=== PATIENT | female | born 1960 | race Caucasian/White ===

== ENCOUNTER 2017-09-15 08:20 | Inpatient (IN) | payer OTHER ==
[~2017-09-15 08:20] MED LIST: ETOMIDATE 20 MG INJ; ROCURONIUM 50 MG INJ
[2017-09-15] MEDS: SOD CHLORIDE 0.9% 1,000 ML IV (08:33)
[2017-09-15] MEDS: ONDANSETRON 4 MG INJ IV (08:33)
[2017-09-15 08:53] LABS: ADD MAN DIFF? NO
[2017-09-15 08:55] LABS: BASOPHILS % 0.3 % (0.0-2.0); EOSINOPHILS # 0.1 10^3/ul (0.0-0.5); EOSINOPHILS % 0.4 % (0.0-7.0); HEMATOCRIT 35.7 % (37.0-47.0); HEMOGLOBIN 10.9 g/dl (12.0-16.0); LYMPHOCYTES # 0.9 10^3/ul (0.8-2.9); LYMPHOCYTES % 7.9 % (15.0-51.0); MEAN CORPUSCULAR HEMOGLOBIN 25.1 pg (29.0-33.0); MEAN CORPUSCULAR HGB CONC 30.5 g/dl (32.0-37.0); MEAN CORPUSCULAR VOLUME 82.1 fl (82.0-101.0); MEAN PLATELET VOLUME 8.1 fl (7.4-10.4); MONOCYTE # 0.8 10^3/ul (0.3-0.9); MONOCYTES % 6.9 % (0.0-11.0); NEUTROPHIL # 10.1 10^3/ul (1.6-7.5); PLATELET COUNT 427 10^3/UL (140-415); RED BLOOD COUNT 4.35 10^6/ul (4.20-5.40)
[2017-09-15 09:17] LABS: ALANINE AMINOTRANSFERASE 18 IU/L (13-69); ALBUMIN 3.6 g/dl (3.3-4.9); ALBUMIN/GLOBULIN RATIO 1.02; ALKALINE PHOSPHATASE 138 IU/L (42-121); ANION GAP 19 (8-16); ASPARTATE AMINO TRANSFERASE 32 IU/L (15-46); BILIRUBIN,INDIRECT 0.2 mg/dl (0-1.1); BILIRUBIN,TOTAL 0.2 mg/dl (0.2-1.3); BLOOD UREA NITROGEN 20 mg/dl (7-20); CARBON DIOXIDE 29 mmol/L (21-31); CHLORIDE 91 mmol/L (97-110); CREATININE 0.83 mg/dl (0.44-1.00); POTASSIUM 4.4 mmol/L (3.5-5.1); SODIUM 135 mmol/L (135-144); TOTAL PROTEIN 7.1 g/dl (6.1-8.1)
[2017-09-15 09:22] LABS: ACETAMINOPHEN < 10.0 ug/ml (10.0-30.0); ETHANOL < 10.0 mg/dl; SALICYLATE < 1.0 mg/dl (5.0-30.0)
[2017-09-15 09:26] LABS: GLUCOSE 417 mg/dl (70-220)
[2017-09-15 09:28] LABS: TROPONIN-I 0.014 ng/ml (0.00-0.12)
[2017-09-15] MEDS ORDERED: hydrALAzine 20 MG INJ (09:29)
[2017-09-15] MEDS ORDERED: PHYTONADIONE 10 MG/ML INJ (09:37)
[2017-09-15] MEDS: hydrALAzine 20 MG INJ IV (09:40)
[2017-09-15 09:58] LABS: FREE THYROXINE INDEX (Calc) 3.14 ug/ml (0.65-3.89); INR 0.93; PROTIME 12.5 Sec (11.9-14.9); T3 UPTAKE 41.8 % (23.5-40.5); T4 (THYROXINE) 7.5 ug/dl (5.5-11.0)
[2017-09-15 09:59] LABS: PARTIAL THROMBOPLASTIN TIME 38.3 Sec (25.0-35.0)
[2017-09-15] MEDS: HYDROmorphONE 0.5 MG/0.5 ML SYG IV (09:59)
[2017-09-15] MEDS: HUMAN PROTHROMBIN COMPLX(PCC) 1,500 UNITS in EVAC CONTAINER 1 BOTTLE IV (10:00)
[2017-09-15] MEDS: PHYTONADIONE 10 MG in DEXTROSE 5% 50 ML IVPB (10:00)
[2017-09-15] MEDS: IDARUCIZUMAB IV ×2 (10:00→10:15)
[2017-09-15] MEDS: niCARdipine-NS 0.1MG/ML DRIP 200 ML IV (10:00)
[2017-09-15] MEDS: MANNITOL 20% 500 ML IV (10:15)
[2017-09-15] MEDS: SOD CHLORIDE 0.9% 1,860 ML IV (10:16)
[2017-09-15] MEDS ORDERED: DEXTROSE 50% 50 ML SYRINGE IV ×4 (10:30→16:30)
[2017-09-15] MEDS ORDERED: NACL 0.9% 3 ML SYG IV (10:30)
[2017-09-15] MEDS ORDERED: ACETAMINOPHEN 325 MG TAB PO (10:30)
[2017-09-15] MEDS ORDERED: morphine 2 MG INJ IV (10:30)
[2017-09-15] MEDS ORDERED: ONDANSETRON 4 MG INJ IV ×2 (10:30→14:30)
[2017-09-15] MEDS ORDERED: BISACODYL 10 MG SUPP PR (10:30)
[2017-09-15] MEDS ORDERED: GLUCAGON 1 MG INJ IM (10:30)
[2017-09-15] MEDS ORDERED: GLUCOSE GEL 15 GRAM TUBE BUCCAL (10:30)
[2017-09-15] MEDS ORDERED: DOCUSATE SODIUM 100 MG CAP PO (10:30)
[2017-09-15] MEDS ORDERED: MAGNESIUM HYDROXIDE 30ML CUP PO (10:30)
[2017-09-15] MEDS ORDERED: GLUCOSE GEL 15 GRAM TUBE PO ×2 (10:30)
[2017-09-15] MEDS ORDERED: ACETAMINOPHEN 650 MG SUPP PR (10:30)
[2017-09-15] MEDS: CEFAZOLIN 2 GM/50 ML (PMX) 50 ML IVPB (11:15)
[2017-09-15 11:30] LABS: ADD UMIC YES; COLLAGEN/EPI 178 Secs. (51-198); UR ASCORBIC ACID 40 mg/dL (NEGATIVE); UR BACTERIA MODERATE /HPF (NONE SEEN); UR BILIRUBIN (Dip) NEGATIVE (NEGATIVE); UR BLOOD (Dip) 2+ mg/dL (NEGATIVE); UR CLARITY SLIGHTLY CLOUDY (CLEAR); UR COLOR YELLOW (YELLOW); UR GLUCOSE (Dip) 3+ mg/dL (NEGATIVE); UR KETONES (Dip) 1+ mg/dL (NEGATIVE); UR LEUKOCYTE ESTERASE (Dip) 2+ Leu/ul (NEGATIVE); UR NITRITE (Dip) POSITIVE (NEGATIVE); UR RBC 6 /HPF (0-5); UR SPECIFIC GRAVITY (Dip) 1.015 (1.003-1.030); UR TOTAL PROTEIN (Dip) 2+ mg/dl (NEGATIVE); UR UROBILINOGEN (Dip) NEGATIVE (NEGATIVE); UR WBC 123 /HPF (0-5)
[2017-09-15] MEDS: MANNITOL 20% 250 ML IV (11:30)
[2017-09-15] MEDS: INSULIN ASPART [NOVOLOG] 3 ML PEN SC ×2 (11:35→13:00)
[2017-09-15] MEDS ORDERED: INSULIN ASPART [NOVOLOG] 3 ML PEN SC (12:00)
[2017-09-15] MEDS: POLYMYXIN/BACITRACIN 1L IRRIG IRR (12:14)
[2017-09-15] MEDS: LIDOCAINE 1%/EPI 30 ML INJ (12:14)
[2017-09-15 12:19] LABS: AMPHETAMINE/METHAMPHETAMINE Negative (NEGATIVE); BARBITURATES Negative (NEGATIVE); BENZODIAZEPINES Negative (NEGATIVE); CANNABINOIDS Negative (NEGATIVE); COCAINE Negative (NEGATIVE); OPIATES Positive (NEGATIVE)
[2017-09-15] MEDS ORDERED: SOD CHLORIDE 0.9% IVPB (13:00)
[2017-09-15] MEDS ORDERED: INSULIN HUMAN REGULAR IVPB (13:00)
[2017-09-15] MEDS ORDERED: ROCURONIUM 50 MG INJ (13:56)
[2017-09-15] MEDS ORDERED: EPHEDrine SULFATE 50 MG/5 ML SYG (13:56)
[2017-09-15] MEDS ORDERED: PHENYLephrine (100 MCG/ML) 5ML SYG (13:57)
[2017-09-15] MEDS: GELATIN SIZE 100 SPONGE (14:11)
[2017-09-15] MEDS: BACITRACIN/POLYMYXIN 28.35 GM OINT TOP (14:11)
[2017-09-15] MEDS: THROMBIN 5000 UNIT VIAL (14:11)
[2017-09-15] MEDS ORDERED: CEPASTAT LOZENGE MT (14:30)
[2017-09-15] MEDS: morphine 2 MG INJ IV (15:36)
[2017-09-15 16:51] LABS: Arterial Blood Gas Oxygen Sat 94.8 mmHG (95.0-98.0); Arterial COHb 0.2 % (0.0-3.0); Arterial Fraction of Oxyhgb 94.3 % (93.0-99.0); Arterial HCO3 24.5 mmol/L (22.0-26.0); Arterial MetHb 0.3 % (0.0-1.5); Arterial Total Hemglobin 10.1 g/dl (12.0-18.0); Arterial pCO2 56.4 mmhg (35-45); Blood Gas PS 10; MODE VENT - CPAP; Site Right Brachial
[2017-09-15] MEDS: ACCU-CHEK XX ×8 (17:00→23:53)
[2017-09-15] MEDS: D5-NS + KCL 20 MEQ 1,000 ML IV (17:01)
[2017-09-15] MEDS ORDERED: CEFTRIAXONE 1 GM/50 ML (PMX) 50 ML IVPB (17:30)
[2017-09-15] MEDS: INSULIN HUMAN REGULAR 100 UNIT in SOD CHLORIDE 0.9% 99 ML IV (17:45)
[2017-09-15] MEDS: LEVOFLOXACIN 500MG/D5W (PMX) 100 ML IVPB (18:56)
[2017-09-15] MEDS ORDERED: INSULIN GLARGINE [LANtus] 3 ML PEN SC (20:00)
[2017-09-15] MEDS: METOPROLOL 25 MG TAB PO (21:00)
[2017-09-16] MEDS: ACCU-CHEK XX ×15 (01:19→15:39)
[2017-09-16] MEDS: niCARdipine-NS 0.1MG/ML DRIP 200 ML IV (01:54)
[2017-09-16] MEDS ORDERED: ACCU-CHEK XX (02:00)
[2017-09-16] MEDS: D5-NS + KCL 20 MEQ 1,000 ML IV ×3 (05:08→20:37)
[2017-09-16 05:38] LABS: ADD MAN DIFF? NO
[2017-09-16 05:45] LABS: BASOPHILS % 0.3 % (0.0-2.0); EOSINOPHILS % 0.2 % (0.0-7.0); HEMATOCRIT 27.7 % (37.0-47.0); HEMOGLOBIN 8.5 g/dl (12.0-16.0); LYMPHOCYTES # 0.9 10^3/ul (0.8-2.9); LYMPHOCYTES % 7.7 % (15.0-51.0); MEAN CORPUSCULAR HEMOGLOBIN 25.4 pg (29.0-33.0); MEAN CORPUSCULAR HGB CONC 30.7 g/dl (32.0-37.0); MEAN CORPUSCULAR VOLUME 82.7 fl (82.0-101.0); MEAN PLATELET VOLUME 8.2 fl (7.4-10.4); MONOCYTE # 0.8 10^3/ul (0.3-0.9); MONOCYTES % 7.1 % (0.0-11.0); NEUTROPHIL # 9.3 10^3/ul (1.6-7.5); NEUTROPHILS % 84.3 % (39.0-77.0); PLATELET COUNT 354 10^3/UL (140-415); RED BLOOD COUNT 3.35 10^6/ul (4.20-5.40)
[2017-09-16] MEDS: PANTOPRAZOLE (EC) 40 MG TAB PO (06:00)
[2017-09-16] MEDS ORDERED: PANTOPRAZOLE 40 MG INJ IV (06:00)
[2017-09-16 06:19] LABS: ALANINE AMINOTRANSFERASE 22 IU/L (13-69); ALBUMIN 2.8 g/dl (3.3-4.9); ALBUMIN/GLOBULIN RATIO 1.07; ALKALINE PHOSPHATASE 92 IU/L (42-121); ANION GAP 12 (8-16); ASPARTATE AMINO TRANSFERASE 19 IU/L (15-46); BLOOD UREA NITROGEN 15 mg/dl (7-20); CALCIUM 9.2 mg/dl (8.4-10.2); CARBON DIOXIDE 29 mmol/L (21-31); CHLORIDE 106 mmol/L (97-110); CHOL/HDL RATIO 2.2 RATIO; CHOLESTEROL 78 mg/dl (100-200); CREATININE 0.59 mg/dl (0.44-1.00); GLUCOSE 133 mg/dl (70-220); HDL CHOLESTEROL 35 mg/dl (37-92); LDL CHOLESTEROL,CALCULATED 32 mg/dl; MAGNESIUM 1.5 mg/dl (1.7-2.5); PHOSPHORUS 3.6 mg/dl (2.5-4.9); SODIUM 143 mmol/L (135-144); TOTAL PROTEIN 5.4 g/dl (6.1-8.1); TRIGLYCERIDES 53 mg/dl (0-149)
[2017-09-16 06:33] LABS: FREE THYROXINE INDEX (Calc) 2.18 ug/ml (0.65-3.89); T3 UPTAKE 43.5 % (23.5-40.5)
[2017-09-16] MEDS: METOPROLOL 25 MG TAB PO ×2 (08:19→20:32)
[2017-09-16] MEDS ORDERED: INSULIN GLARGINE [LANtus] 3 ML PEN SC (09:00)
[2017-09-16] MEDS: LEVALBUTEROL (NEB) 0.63 MG/3 ML AMP HHN (09:32)
[2017-09-16] MEDS: morphine 2 MG INJ IV ×3 (10:25→15:55)
[2017-09-16 10:44] LABS: AADO2 Arterial 160.6 mmHg (7.0-24.0); Arterial Base Excess 0.5 mmol/L (-3.0-3); Arterial COHb 0.3 % (0.0-3.0); Arterial Fraction of Oxyhgb 96.2 % (93.0-99.0); Arterial HCO3 26.9 mmol/L (22.0-26.0); Arterial MetHb 0.5 % (0.0-1.5); Arterial Total Hemglobin 8.9 g/dl (12.0-18.0); Arterial pCO2 52.1 mmhg (35-45); MODE TX MASK; Site Right Brachial
[2017-09-16] MEDS: LEVETIRACETAM 500 MG TAB PO ×2 (10:53→20:31)
[2017-09-16] MEDS: INSULIN ASPART [NOVOLOG] 3 ML PEN SC ×5 (11:30→20:32)
[2017-09-16] MEDS ORDERED: GLUCAGON 1 MG INJ IM (12:00)
[2017-09-16] MEDS ORDERED: GLUCOSE GEL 15 GRAM TUBE BUCCAL (12:00)
[2017-09-16] MEDS ORDERED: DEXTROSE 50% 50 ML SYRINGE IV ×2 (12:00)
[2017-09-16] MEDS ORDERED: GLUCOSE GEL 15 GRAM TUBE PO ×2 (12:00)
[2017-09-16] MEDS: MAGNESIUM SULFATE 4 GM/100 ML 100 ML IVPB (12:16)
[2017-09-16] MEDS: INSULIN GLARGINE [LANtus] 3 ML PEN SC (12:29)
[2017-09-16] MEDS: LEVOFLOXACIN 500MG/D5W (PMX) 100 ML IVPB (17:04)
[2017-09-16] MEDS: HYDROCODONE/APAP (5/325) TAB PO ×2 (20:45→23:57)
[2017-09-17] MEDS: INSULIN ASPART [NOVOLOG] 3 ML PEN SC ×7 (00:05→17:24)
[2017-09-17] MEDS: ACCU-CHEK XX ×2 (00:33→23:54)
[2017-09-17] MEDS: PANTOPRAZOLE (EC) 40 MG TAB PO (05:49)
[2017-09-17] MEDS: D5-NS + KCL 20 MEQ 1,000 ML IV ×2 (05:49→17:14)
[2017-09-17] MEDS: HYDROCODONE/APAP (5/325) TAB PO ×3 (05:55→20:43)
[2017-09-17 06:36] LABS: ADD MAN DIFF? NO
[2017-09-17 06:39] LABS: BASOPHILS % 0.4 % (0.0-2.0); EOSINOPHILS # 0.1 10^3/ul (0.0-0.5); EOSINOPHILS % 0.5 % (0.0-7.0); HEMATOCRIT 29.2 % (37.0-47.0); HEMOGLOBIN 8.5 g/dl (12.0-16.0); LYMPHOCYTES # 1.3 10^3/ul (0.8-2.9); LYMPHOCYTES % 11.2 % (15.0-51.0); MEAN CORPUSCULAR HEMOGLOBIN 24.6 pg (29.0-33.0); MEAN CORPUSCULAR HGB CONC 29.1 g/dl (32.0-37.0); MEAN CORPUSCULAR VOLUME 84.4 fl (82.0-101.0); MEAN PLATELET VOLUME 8.4 fl (7.4-10.4); MONOCYTE # 0.8 10^3/ul (0.3-0.9); MONOCYTES % 6.9 % (0.0-11.0); NEUTROPHIL # 9.1 10^3/ul (1.6-7.5); NEUTROPHILS % 80.6 % (39.0-77.0); PLATELET COUNT 371 10^3/UL (140-415); RED BLOOD COUNT 3.46 10^6/ul (4.20-5.40); RED CELL DISTRIBUTION WIDTH 17.4 % (11.5-14.5)
[2017-09-17 06:39] LABS: WHITE BLOOD COUNT 11.3 10^3/ul (4.8-10.8)
[2017-09-17 07:01] LABS: ANION GAP 12 (8-16); BLOOD UREA NITROGEN 12 mg/dl (7-20); CALCIUM 8.7 mg/dl (8.4-10.2); CARBON DIOXIDE 29 mmol/L (21-31); CHLORIDE 109 mmol/L (97-110); CREATININE 0.59 mg/dl (0.44-1.00); GLUCOSE 149 mg/dl (70-220); MAGNESIUM 2.1 mg/dl (1.7-2.5); POTASSIUM 4.5 mmol/L (3.5-5.1); SODIUM 145 mmol/L (135-144)
[2017-09-17] MEDS: METOPROLOL 25 MG TAB PO ×2 (09:00→20:47)
[2017-09-17] MEDS: LEVETIRACETAM 500 MG TAB PO ×2 (09:00→20:44)
[2017-09-17] MEDS: INSULIN GLARGINE [LANtus] 3 ML PEN SC (09:09)
[2017-09-17] MEDS: LEVALBUTEROL (NEB) 0.63 MG/3 ML AMP HHN ×2 (16:47→20:57)
[2017-09-17] MEDS: ACETYLCYSTEINE 20% 4 ML VIAL NEB ×2 (17:01→21:04)
[2017-09-17] MEDS: LEVOFLOXACIN 500MG/D5W (PMX) 100 ML IVPB (17:13)
[2017-09-17] MEDS: morphine 2 MG INJ IV (17:14)
[2017-09-17] MEDS ORDERED: INSULIN ASPART [NOVOLOG] 3 ML PEN SC (17:25)
[2017-09-17] MEDS: Insulin NOVOLOG SS MILD Algorithm (SS with meals and bedtime) SC ×2 (17:25→20:42)
[2017-09-18] MEDS: LEVALBUTEROL (NEB) 0.63 MG/3 ML AMP HHN ×3 (01:28→13:57)
[2017-09-18] MEDS: ACETYLCYSTEINE 20% 4 ML VIAL NEB ×4 (01:48→19:37)
[2017-09-18] MEDS: HYDROCODONE/APAP (5/325) TAB PO ×2 (02:09→08:34)
[2017-09-18] MEDS: D5-NS + KCL 20 MEQ 1,000 ML IV (04:37)
[2017-09-18] MEDS: PANTOPRAZOLE (EC) 40 MG TAB PO (06:17)
[2017-09-18] MEDS: Insulin NOVOLOG SS MILD Algorithm (SS with meals and bedtime) SC ×3 (07:25→17:20)
[2017-09-18] MEDS: LEVETIRACETAM 500 MG TAB PO (08:34)
[2017-09-18] MEDS: METOPROLOL 25 MG TAB PO (08:34)
[2017-09-18] MEDS: INSULIN ASPART [NOVOLOG] 3 ML PEN SC ×3 (08:36→17:20)
[2017-09-18] MEDS: INSULIN GLARGINE [LANtus] 3 ML PEN SC (08:38)
[2017-09-18] MEDS: BALSAM PERU/CASTOR OIL 60 GM TUBE TOP (17:42)
[2017-09-18] MEDS: COLLAGENASE 30 GM TUBE TOP (17:42)
== END 2017-09-18 20:34 | disposition short-term general hospital (02) | DRG 25 ==
LOC: TEL 09-16 19:17 → E/R 08:20 → TEL 09-16 20:46 → SDS 11:30 → REC 11:34 → ICU 14:21
PROVIDERS: Internal Medicine
PROC: 00C30ZZ Extirpation of Matter from Intracranial Epidural Space, Open Approach (ICD-10-PCS; principal; 2017-09-15 11:30)
PROC: 0BH17EZ Insertion of Endotracheal Airway into Trachea, Via Natural or Artificial Opening (ICD-10-PCS; 2017-09-15 11:33)
PROC: 5A1935Z Respiratory Ventilation, Less than 24 Consecutive Hours (ICD-10-PCS; 2017-09-15 11:33)
DX: S06.5X0A Traumatic subdural hemorrhage without loss of consciousness, initial encounter (principal); J96.01 Acute respiratory failure with hypoxia; J96.02 Acute respiratory failure with hypercapnia; N39.0 Urinary tract infection, site not specified; J98.11 Atelectasis; S06.4X0A Epidural hemorrhage without loss of consciousness, initial encounter; E11.40 Type 2 diabetes mellitus with diabetic neuropathy, unspecified; S01.01XA Laceration without foreign body of scalp, initial encounter; I10 Essential (primary) hypertension; E11.65 Type 2 diabetes mellitus with hyperglycemia; J44.9 Chronic obstructive pulmonary disease, unspecified; I25.10 Atherosclerotic heart disease of native coronary artery without angina pectoris; E78.5 Hyperlipidemia, unspecified; I48.0 Paroxysmal atrial fibrillation; D64.9 Anemia, unspecified; B96.20 Unspecified Escherichia coli [E. coli] as the cause of diseases classified elsewhere; W10.1XXA Fall (on)(from) sidewalk curb, initial encounter; Y93.89 Activity, other specified; Y92.412 Parkway as the place of occurrence of the external cause; Y99.8 Other external cause status; Z79.4 Long term (current) use of insulin; Z87.891 Personal history of nicotine dependence; Z95.5 Presence of coronary angioplasty implant and graft
CPT/HCPCS: 31500; 36415; 36600; 70450; 71045; 80048; 80053; 80061; 80306; 80307; 81001; 82803; 82962; 83036; 83735; 84100; 84436; 84443; 84479; 84484; 85025; 85576; 85610; 85730; 86850; 86900; 86901; 86920; 87081; 87086; 88304; 92610; 93005; 93306; 93880; 94002; 94640; 94664; 96365; 96366; 96375; 97110; 97116; 97163; 97530; 99291-25

== ENCOUNTER 2017-10-01 07:05 | Inpatient (IN) | payer OTHER ==
[2017-10-01] MEDS: SOD CHLORIDE 0.9% 1,000 ML IV ×3 (07:30→16:31)
[2017-10-01] MEDS: PIPER-TAZO 3.375 GM IV (PMX) 100 ML IVPB ×2 (07:30→16:25)
[2017-10-01 07:45] LABS: AADO2 Arterial 44.3 mmHg (7.0-24.0); Allen Test ACCEPTAB; Arterial Base Excess 6.9 mmol/L (-3.0-3); Arterial Blood Gas Oxygen Sat 88.9 mmHG (95.0-98.0); Arterial COHb 0.9 % (0.0-3.0); Arterial Fraction of Oxyhgb 87.7 % (93.0-99.0); Arterial HCO3 30.8 mmol/L (22.0-26.0); Arterial MetHb 0.5 % (0.0-1.5); Arterial Total Hemglobin 7.6 g/dl (12.0-18.0); Arterial pCO2 41.1 mmhg (35-45); MODE ROOM AIR; Site Right Radial
[2017-10-01 07:50] LABS: WHITE BLOOD COUNT 12.3 10^3/ul (4.8-10.8)
[2017-10-01 07:50] LABS: ADD MAN DIFF? NO; BASOPHILS % 0.2 % (0.0-2.0); EOSINOPHILS % 0.2 % (0.0-7.0); HEMATOCRIT 23.2 % (37.0-47.0); HEMOGLOBIN 7.1 g/dl (12.0-16.0); LYMPHOCYTES # 1.8 10^3/ul (0.8-2.9); LYMPHOCYTES % 14.9 % (15.0-51.0); MEAN CORPUSCULAR HEMOGLOBIN 24.1 pg (29.0-33.0); MEAN CORPUSCULAR HGB CONC 30.6 g/dl (32.0-37.0); MEAN CORPUSCULAR VOLUME 78.9 fl (82.0-101.0); MEAN PLATELET VOLUME 8.9 fl (7.4-10.4); MONOCYTE # 0.7 10^3/ul (0.3-0.9); MONOCYTES % 5.7 % (0.0-11.0); NEUTROPHIL # 9.7 10^3/ul (1.6-7.5); NEUTROPHILS % 78.4 % (39.0-77.0); PLATELET COUNT 349 10^3/UL (140-415); RED BLOOD COUNT 2.94 10^6/ul (4.20-5.40)
[2017-10-01] MEDS ORDERED: PROPOFOL 100 ML (08:01)
[2017-10-01 08:09] LABS: LACTIC ACID 1.3 mmol/L (0.5-2.0)
[2017-10-01 08:10] LABS: INR 1.11; PARTIAL THROMBOPLASTIN TIME 32.8 Sec (25.0-35.0); PROTIME 14.5 Sec (11.9-14.9); PT RATIO 1.1
[2017-10-01 08:13] LABS: ALANINE AMINOTRANSFERASE 19 IU/L (13-69); ALBUMIN 2.2 g/dl (3.3-4.9); ALBUMIN/GLOBULIN RATIO 0.91; ALKALINE PHOSPHATASE 111 IU/L (42-121); ANION GAP 13 (8-16); ASPARTATE AMINO TRANSFERASE 10 IU/L (15-46); BILIRUBIN,INDIRECT 0.1 mg/dl (0-1.1); BILIRUBIN,TOTAL 0.1 mg/dl (0.2-1.3); BLOOD UREA NITROGEN 17 mg/dl (7-20); CALCIUM 8.2 mg/dl (8.4-10.2); CARBON DIOXIDE 30 mmol/L (21-31); CHLORIDE 90 mmol/L (97-110); CREATININE 0.61 mg/dl (0.44-1.00); POTASSIUM 4.1 mmol/L (3.5-5.1); SODIUM 129 mmol/L (135-144); TOTAL PROTEIN 4.6 g/dl (6.1-8.1)
[2017-10-01 08:22] LABS: TROPONIN-I 0.033 ng/ml (0.00-0.12)
[2017-10-01 08:23] LABS: GLUCOSE 486 mg/dl (70-220)
[2017-10-01 08:26] LABS: FREE THYROXINE INDEX (Calc) 2.06 ug/ml (0.65-3.89); T3 UPTAKE 44.7 % (23.5-40.5); T4 (THYROXINE) 4.6 ug/dl (5.5-11.0)
[2017-10-01 08:44] LABS: ACETAMINOPHEN < 10.0 ug/ml (10.0-30.0); ETHANOL < 10.0 mg/dl; SALICYLATE < 1.0 mg/dl (5.0-30.0)
[2017-10-01] MEDS: PROPOFOL 100 ML IV ×3 (08:56→21:24)
[2017-10-01] MEDS: MIDAZOLAM (DRIP) 50 mg/50 mL 50 ML IV (09:44)
[2017-10-01] MEDS: SOD CHLORIDE 0.9% 500 ML IV ×2 (09:44→23:17)
[2017-10-01] MEDS: ACETAMINOPHEN 650 MG SUPP PR (09:44)
[2017-10-01 10:01] LABS: ADD UMIC YES; UR ASCORBIC ACID NEGATIVE (NEGATIVE); UR BILIRUBIN (Dip) NEGATIVE (NEGATIVE); UR BLOOD (Dip) NEGATIVE (NEGATIVE); UR CLARITY CLEAR (CLEAR); UR COLOR COLORLESS (YELLOW); UR GLUCOSE (Dip) 3+ mg/dL (NEGATIVE); UR KETONES (Dip) TRACE mg/dL (NEGATIVE); UR LEUKOCYTE ESTERASE (Dip) TRACE Leu/ul (NEGATIVE); UR NITRITE (Dip) NEGATIVE (NEGATIVE); UR RBC 2 /HPF (0-5); UR SPECIFIC GRAVITY (Dip) 1.013 (1.003-1.030); UR TOTAL PROTEIN (Dip) NEGATIVE (NEGATIVE); UR UROBILINOGEN (Dip) NEGATIVE (NEGATIVE); UR WBC 13 /HPF (0-5)
[2017-10-01 10:20] LABS: AADO2 Arterial 178.4 mmHg (7.0-24.0); Allen Test ACCEPTAB; Arterial Base Excess 4.4 mmol/L (-3.0-3); Arterial Blood Gas Oxygen Sat 99.9 mmHG (95.0-98.0); Arterial COHb 0.6 % (0.0-3.0); Arterial Fraction of Oxyhgb 98.8 % (93.0-99.0); Arterial HCO3 28.7 mmol/L (22.0-26.0); Arterial MetHb 0.5 % (0.0-1.5); Arterial Total Hemglobin 7.1 g/dl (12.0-18.0); Arterial pCO2 43.5 mmhg (35-45); MODE VENT - AC; Site Right Radial
[2017-10-01 10:21] LABS: OPIATES Positive (NEGATIVE)
[2017-10-01 10:22] LABS: AMPHETAMINE/METHAMPHETAMINE Negative (NEGATIVE); BENZODIAZEPINES Negative (NEGATIVE)
[2017-10-01 10:27] LABS: CANNABINOIDS Negative (NEGATIVE)
[2017-10-01] MEDS: VANCOMYCIN 1 GM (PMX) 250 ML IVPB (10:28)
[2017-10-01 10:41] LABS: BARBITURATES Negative (NEGATIVE); COCAINE Negative (NEGATIVE)
[2017-10-01] MEDS: ACCU-CHEK XX ×10 (14:00→23:16)
[2017-10-01] MEDS ORDERED: VANCOMYCIN IV PER PHARMACY XX (14:00)
[2017-10-01] MEDS: INSULIN HUMAN REGULAR 100 UNIT in SOD CHLORIDE 0.9% 99 ML IV (16:07)
[2017-10-01] MEDS ORDERED: NACL 0.9% 3 ML SYG IV (16:30)
[2017-10-01] MEDS: VANCOMYCIN 500MG/NS (PMX) 100 ML IVPB (17:14)
[2017-10-01] MEDS: SOD CHLORIDE 0.9% IV (22:30)
[2017-10-01] MEDS: FENTANYL IV (22:30)
[2017-10-01] MEDS ORDERED: FENTAnyl (DRIP) 1000 mcg/100mL 100 ML IV (22:30)
[2017-10-01] MEDS: DEXTROSE 50% 50 ML SYRINGE IV (23:59)
[2017-10-02] MEDS: ACCU-CHEK XX ×14 (00:05→13:30)
[2017-10-02] MEDS: DEXTROSE 5%-0.45% NACL 1,000 ML IV ×2 (00:24→13:46)
[2017-10-02] MEDS: VANCOMYCIN 1 GM in 250 ML IVPB (05:10)
[2017-10-02 05:12] LABS: ADD MAN DIFF? NO
[2017-10-02 05:16] LABS: BASOPHILS % 0.3 % (0.0-2.0); EOSINOPHILS # 0.2 10^3/ul (0.0-0.5); EOSINOPHILS % 2.3 % (0.0-7.0); HEMATOCRIT 23.4 % (37.0-47.0); HEMOGLOBIN 7.2 g/dl (12.0-16.0); LYMPHOCYTES % 19.9 % (15.0-51.0); MEAN CORPUSCULAR HEMOGLOBIN 24.9 pg (29.0-33.0); MEAN CORPUSCULAR HGB CONC 30.8 g/dl (32.0-37.0); MEAN PLATELET VOLUME 8.5 fl (7.4-10.4); MONOCYTE # 0.6 10^3/ul (0.3-0.9); MONOCYTES % 5.8 % (0.0-11.0); NEUTROPHIL # 7.3 10^3/ul (1.6-7.5); NEUTROPHILS % 71.3 % (39.0-77.0); PLATELET COUNT 295 10^3/UL (140-415); RED BLOOD COUNT 2.89 10^6/ul (4.20-5.40); RED CELL DISTRIBUTION WIDTH 18.3 % (11.5-14.5)
[2017-10-02 05:16] LABS: WHITE BLOOD COUNT 10.2 10^3/ul (4.8-10.8)
[2017-10-02 05:41] LABS: ALANINE AMINOTRANSFERASE 19 IU/L (13-69); ALBUMIN 2.1 g/dl (3.3-4.9); ALBUMIN/GLOBULIN RATIO 0.87; ALKALINE PHOSPHATASE 91 IU/L (42-121); ANION GAP 9 (8-16); ASPARTATE AMINO TRANSFERASE 10 IU/L (15-46); BILIRUBIN,INDIRECT 0.1 mg/dl (0-1.1); BILIRUBIN,TOTAL 0.1 mg/dl (0.2-1.3); BLOOD UREA NITROGEN 12 mg/dl (7-20); CALCIUM 7.9 mg/dl (8.4-10.2); CARBON DIOXIDE 32 mmol/L (21-31); CHLORIDE 100 mmol/L (97-110); CREATININE 0.55 mg/dl (0.44-1.00); GLUCOSE 139 mg/dl (70-220); POTASSIUM 3.2 mmol/L (3.5-5.1); SODIUM 138 mmol/L (135-144); TOTAL PROTEIN 4.5 g/dl (6.1-8.1)
[2017-10-02 06:06] LABS: FERRITIN 30.8 ng/ml (11.1-264.0)
[2017-10-02] MEDS: PIPER-TAZO 3.375 GM IV (PMX) 100 ML IVPB ×3 (06:29→18:20)
[2017-10-02] MEDS: POTASSIUM CHLORIDE 100 ML IVPB ×3 (06:55→11:21)
[2017-10-02 07:56] LABS: IRON 16 ug/dl (35-150)
[2017-10-02] MEDS ORDERED: FENTAnyl 1,000 MCG in SOD CHLORIDE 0.9% 100 ML IV (08:00)
[2017-10-02 08:05] LABS: % IRON SATURATION 6 % SAT (22-52); TOTAL IRON BINDING CAPACITY 266 ug/dl (241-421)
[2017-10-02 08:41] LABS: IMMEDIATE SPIN CROSSMATCH 1 2
[2017-10-02] MEDS: PROPOFOL 100 ML IV (09:00)
[2017-10-02] MEDS: COLLAGENASE 30 GM TUBE TOP (09:15)
[2017-10-02] MEDS: DEXTROSE 50% 50 ML SYRINGE IV ×2 (09:26→11:31)
[2017-10-02 10:39] LABS: AADO2 Arterial 60.5 mmHg (7.0-24.0); Allen Test ACCEPTAB; Arterial Base Excess 6.6 mmol/L (-3.0-3); Arterial Blood Gas Oxygen Sat 97.6 mmHG (95.0-98.0); Arterial COHb 0.4 % (0.0-3.0); Arterial Fraction of Oxyhgb 96.8 % (93.0-99.0); Arterial HCO3 31.4 mmol/L (22.0-26.0); Arterial MetHb 0.4 % (0.0-1.5); Arterial Total Hemglobin 8.6 g/dl (12.0-18.0); Arterial pCO2 46.8 mmhg (35-45); Blood Gas PS 10; MODE VENT - CPAP; Site Right Radial
[2017-10-02] MEDS ORDERED: GLUCOSE GEL 15 GRAM TUBE BUCCAL (14:00)
[2017-10-02] MEDS ORDERED: DEXTROSE 50% 50 ML SYRINGE IV ×2 (14:00)
[2017-10-02] MEDS ORDERED: GLUCAGON 1 MG INJ IM (14:00)
[2017-10-02] MEDS ORDERED: GLUCOSE GEL 15 GRAM TUBE PO ×2 (14:00)
[2017-10-02] MEDS: INSULIN GLARGINE [LANtus] 3 ML PEN SC (15:50)
[2017-10-02] MEDS: HYDROCODONE/APAP (5/325) TAB PO (16:58)
[2017-10-02] MEDS: INSULIN ASPART [NOVOLOG] 3 ML PEN SC ×2 (17:09→20:10)
[2017-10-02] MEDS ORDERED: INSULIN GLARGINE [LANtus] 3 ML PEN SC (20:00)
== END 2017-10-02 20:33 | disposition short-term general hospital (02) | DRG 208 ==
LOC: E/R 07:05 → ICU 13:14
PROC: 0BH17EZ Insertion of Endotracheal Airway into Trachea, Via Natural or Artificial Opening (ICD-10-PCS; principal; 2017-10-01)
PROC: 5A1935Z Respiratory Ventilation, Less than 24 Consecutive Hours (ICD-10-PCS; 2017-10-01)
DX: J96.01 Acute respiratory failure with hypoxia (principal); G93.40 Encephalopathy, unspecified; R41.82 Altered mental status, unspecified; D64.9 Anemia, unspecified; E11.65 Type 2 diabetes mellitus with hyperglycemia
CPT/HCPCS: 31500; 36415; 36430; 36600; 70450; 71045; 80053; 80306; 80307; 81001; 82728; 82803; 82962; 83540; 83605; 84436; 84479; 84484; 85025; 85610; 85730; 86850; 86900; 86901; 86920; 87040; 87081; 87086; 93005; 94002; 94003; 94770; 96361; 96365; 96366; 96367; 99291-25